=== PATIENT | male | born 1945 | race Hispanic/Latino ===

== ENCOUNTER 2020-07-12 06:58 | Inpatient (IN) | payer OTHER ==
--- OUTSIDE RECORDS SUMMARY | 2020-07-12 07:00 | XMS REPORT | Continuity of Care Document ---
:1945 Author Organization [facility] t Address 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 Intermitte Problem Active 2017-10 [facility] nt nt 0-30 da claudicati Claudicati 00:00: Me dical on on 00 Group Type 2 Type 2 Problem Active [place] diabetes Diabetes 821 da mellitus Mellitus 00:00: Medica l without without 00 Group complicati Complicati on on 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 Hyperlipid 8- da emia emia 00:00: Medical 00 Group Generalize Generalize Problem Active [facility] d anxiety d Anxiety 8-21 da disorder Disorder 00:00: Medica l 00 Group Benign Benign Problem Active [place]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 Social History Smoking Status Start Date Stop Date Source Former Smoker [facility] Medications Ordered Filled Start Stop Current Ordering Indication Dosage Frequency Signature Comments Components Source Medication Medication Date Date Medication? Clinician (SIG) Name Name amoxicillin amoxicillin No 1 Q12H amoxicilli [place] 875 mg 875 mg n 875 mg da tablet Take tablet Take tablet Medical 1 tablet 1 tablet Take 1 Group every 12 every 12 tablet hours by hours by every 12 oral route. oral route. hours by take for take for oral infection infection route. take for infection carvedilol carvedilol No carvedilol [place] 6.25 mg 6.25 mg 6.25 mg da tablet Take tablet Take tablet Medical 1 tablet 1 tablet Take 1 Group every day every day tablet by oral by oral every day route. route. by oral route. citalopram citalopram No citalopram [place] 10 mg 10 mg 10 mg da tablet take tablet take tablet Medical once a day once a day take once Group in the am in the am a day in the am clopidogrel clopidogrel No clopidogre [place] 75 mg 75 mg l 75 mg da tablet Take tablet Take tablet Medical 1 tablet 1 tablet Take 1 Group every day every day tablet by oral by oral every day route. route. by oral route. clotrimazol clotrimazol No clotrimazo [place] e-betametha e-betametha le-betamet da sone 1 sone 1 hasone 1 Medical %-0.05 % %-0.05 % %-0.05 % Megan up topical topical topical cream Apply cream Apply cream 1 1 Apply 1 application application applicatio twice a day twice a day n twice a by topical by topical day by route. route. topical route. enalapril enalapril No enalapril [place] maleate 20 maleate 20 maleate 20 da mg tablet mg tablet mg tablet Medical Take 1 Take 1 Take 1 Group tablet tablet tablet every day every day every day by oral by oral by oral route. route. route. Expectorant Expectorant No 10mL Q4H Expectoran [place] DM 10 DM 10 t DM 10 da mg-100 mg/5 mg-100 mg/5 mg-100 Medical mL oral mL oral mg/5 mL Group syrup Take syrup Take oral syrup 10 mL every 10 mL every Take 10 mL 4 hours by 4 hours by every 4 oral route. oral route. hours by use as use as oral needed for needed for route. use congestion congestion as needed and cough and cough for congestion and cough FreeStyle FreeStyle No FreeStyle [place] Jose Martin 14 Jose Martin 14 Jos Emartin 14 da Day [place] Day [facility] FreeStyle FreeStyle No FreeStyle [place] Jose Martin 14 Jose Martin 14 Jose Martin 14 da Day Sensor Day Sensor Day Sensor Medical kit kit kit Group gabapentin gabapentin No gabapentin [place] 300 mg 300 mg 300 mg da capsule capsule capsule Medica l TAKE 1 TAKE 1 TAKE 1 Group CAPSULE BY CAPSULE BY CAPSULE BY MOUTH TWICE MOUTH TWICE MOUTH DAILY DAILY TWICE DAILY lorazepam lorazepam No .5 Q1D lorazepam [facility] 0.5 mg 0.5 mg 0.5 mg da tablet Take tablet Take tablet Medical 0.5 tablets 0.5 tablets Take 0.5 Group every day every day tablets by oral by oral every day route. take route. take by oral daily for daily for route. anxiety anxiety take daily for anxiety metformin metformin No metformin [place] 850 mg 850 mg 850 mg da tablet Take tablet Take tablet Medical 1 tablet 1 tablet Take 1 Group twice a day twice a day tablet by oral by oral twice a route. route. day by oral route. pioglitazon pioglitazon No pioglitazo [place] e 15 mg e 15 mg ne 15 mg da tablet TAKE tablet TAKE tablet Medical ONE TABLET ONE TABLET TAKE ONE Group BY MOUTH BY MOUTH TABLET BY EVERY DAY EVERY DAY MOUTH EVERY DAY simvastatin simvastatin No simvastati [place] 40 mg 40 mg n 40 mg da tablet Take tablet Take tablet Medical 1 tablet 1 tablet Take 1 Group every day every day tablet by oral by oral every day route. route. by oral route. True Metrix True Metrix No True [facility] Glucose Glucose Metrix da Meter Meter Glucose Medical Meter Group True Metrix True Metrix No True M [facility] Glucose Glucose Metrix da Test Strip Test Strip Glucose Medical Test Strip Group TRUEplus TRUEplus No TRUEplus [facility] Lancets 33 Lancets 33 Lancets 33 da gauge gauge gauge Medical Group Vital Signs Vital Name Observation Time Observation Value Comments Source BP Diastolic 2019-02-17 00:00:00 85 mm[Hg] [facility] Height 2019-02-17 00:00:00 65 [in_i] [facility] BMI (Body Mass 2019-02-17 00:00:00 33.3 kg/m2 [facility] Medical Index) Group BP Systolic 2019-02-17 00:00:00 155 mm[Hg] [facility] Body Weight 2019-02-17 00:00:00 3200 [oz_av] [facility] BP Diastolic 2019-01-31 00:00:00 78 mm[Hg] [facility] Height 2019-01-31 00:00:00 65 [in_i] [facility] BMI (Body Mass 2019-01-31 00:00:00 34.1 kg/m2 [facility] Medical Index) Group BP Systolic 2019-01-31 00:00:00 166 mm[Hg] [facility] Body Weight 2019-01-31 00:00:00 3280 [oz_av] [facility] BP Diastolic 2018-09-30 00:00:00 74 mm[Hg] [facility] Height 2018-09-30 00:00:00 65 [in_i] [facility] BMI (Body Mass 2018-09-30 00:00:00 33.3 kg/m2 [facility] Medical Index) Group BP Systolic 2018-09-30 00:00:00 170 mm[Hg] [facility] Body Weight 2018-09-30 00:00:00 3200 [oz_av] [facility] Procedures This patient has no known procedures. Encounters Start End Encounter Admission Attending Care Care Encounter Source Date/Time Date/Time Type Type Clinicians Facility Department ID 2020-04-09 2020-04-09 Laboratory Lab, Adc [facility] [id number] 07:17:37 07:37:37 Only Fam [facility] I [facility] [id number] [place] [id number] Professio [id number] nal [address] 2019-07-10 2019-07-10 Outpatient [id number] 05:28:00 05:28:00 [facility] kelly [facility] 2019-02-17 2019-02-17 [place] - [id number] [facility] 00:00:00 00:00:00 MD William: [address], [place] - [address], [facility], [place] [address] , Ph. 2019-01-31 2019-01-31 [place] - [id number] [facility] 00:00:00 00:00:00 MD William: My Visual Brief [address], [place] - [address], [facility], [place] [address] , Ph. 2018-09-30 2018-09-30 [place] - [id number] [facility] 00:00:00 00:00:00 MD William: My Visual Brief [address], [facility] [address], [facility] [address] , Ph. 2018-09-13 2018-09-13 [place] - [id number] [facility] 00:00:00 00:00:00 MD William: My Visual Brief [address], [facility] [address], [facility] [address] , Ph. Results Test Description Test Time Test Comments Results Result Comments Source Potassium Level 2019-06-20 09:32:58 Test Item Value Reference Range Interpretation Comme nts Potassium Level (test code = Potassium Level) 4.9 mmol/L 3.5-5.1 Prothrombin Time and [id number] 08:34:13 Test Item Value Reference Range Interpretation Comments Prothrombin Time (test code = 14.8 seconds 9.8-13.4 H Prothrombin Time) INR (test code = INR) 1.3 ratio 0.6-1.2 H Partial Thromboplastin [id number] 08:34:13 Test Item Value Reference Range Interpretation Comments Partial Thromboplastin Time 34.10 seconds 24.39-37.25 (test code = Partial Thromboplastin Time) Comprehensive Metabolic [id number] 21:57:38 Test Item Value Reference Range Interpretation Comments Sodium Level (test code = Sodium 142.0 mmol/L 135.0-145.0 Level) Potassium Level (test code = 5.3 mmol/L 3.5-5.1 H Potassium Level) Chloride Level (test code = 103 mmol/L 98-105 Chloride Level) CO2 (test code = CO2) 29 mmol/L 22-29 Anion Gap (test code = Anion 10 mmol/L 7-16 Gap) BUN (test code = BUN) 27.80 mg/dL 8.00-23.00 H Creatinine Level (test code = 1.10 mg/dL 0.70-1.20 Creatinine Level) BUN/Creat Ratio (test code = 25 N BUN/Creat Ratio) Glucose Level (test code = 112 mg/dL 70-115 Glucose Level) Calcium Level (test code = 9.2 mg/dL 8.3-10.5 Calcium Level) Alk Phos (test code = Alk Phos) 56 U/L 40-129 Bilirubin Total (test code = 1.1 mg/dL 0.1-0.9 H Bilirubin Total) Albumin Level (test code = 4.0 g/dL 3.5-5.2 Albumin Level) Protein Total (test code = 6.9 g/dL 6.4-8.3 Protein Total) ALT (test code = ALT) 10 U/L 1-41 AST (test code = AST) 14 U/L 1-40 Globulin (test code = Globulin) 2.9 g/dL 2.9-3.1 A/G Ratio (test code = A/G 1.4 ratio N Ratio) Comprehensive Metabolic [id number] 21:57:38 Test Item Value Reference Range Interpretation Comments Sodium Level (test 142.0 mmol/L 135.0-145.0 code = Sodium Level) Potassium Level 5.3 mmol/L 3.5-5.1 H (test code = Potassium Level) Chloride Level (test 103 mmol/L 98-105 code = Chloride Level) CO2 (test code = 29 mmol/L 22-29 CO2) Anion Gap (test code 10 mmol/L 7-16 = Anion Gap) BUN (test code = 27.80 mg/dL 8.00-23.00 H BUN) Creatinine Level 1.10 mg/dL 0.70-1.20 (test code = Creatinine Level) BUN/Creat Ratio 25 N (test code = BUN/Creat Ratio) Glucose Level (test 112 mg/dL 70-115 code = Glucose Level) Calcium Level (test 9.2 mg/dL 8.3-10.5 code = Calcium Level) Alk Phos (test code 56 U/L 40-129 = Alk Phos) Bilirubin Total 1.1 mg/dL 0.1-0.9 H (test code = Bilirubin Total) Albumin Level (test 4.0 g/dL 3.5-5.2 code = Albumin Level) Protein Total (test 6.9 g/dL 6.4-8.3 code = Protein Total) ALT (test code = 10 U/L 1-41 ALT) AST (test code = 14 U/L 1-40 AST) Globulin (test code 2.9 g/dL 2.9-3.1 = Globulin) A/G Ratio (test code 1.4 ratio N = A/G Ratio) eGFR AA (test code = >60 N eGFR (e stimated eGFR AA) mL/min/1.73 m2 Glomerular Filtration Rate ) is an estimated va lue, calculated from the patient's serum creatinine usin g the MDRD equation. It is NOT the patient 's actual GFR. The eGFR provides a more clinically usef ul measure of kidn ey disease than se rum creatinine alone.This calculation [place] es sex and race in to account, if the information is provided. If th e race is not provided, and t he patient is -Yue n, multiply by 1.2 12. If sex is not provided, and t he patient is fema le, multiply by 0.7 42. Results for pat ients <18 years of ag e have not been validated by th e MDRD study and should be interpreted wit h caution. eGFR R esult Interpretation: eGFR > or = 60 is in the Normal RangeeGF R < 60 may mean kid shaina diseaseeGFR < 1 5 may mean kidney failure Rang es recommended by the National Kidney Foundation, http://nkdep.ni h.gov Lipid [id number] 21:57:38 Test Item Value Reference Range Interpretation Comments Cholesterol Total 166 mg/dL 0-200 RISK OF HE ART (test code = DISEASEPublishe d by Cholesterol Total) [place] [employer] Caprice lyte Optimal Borderl ine Increased RiskC HOL <200 200-239 >2 40TRIG <150 150-199 >2 00HDL Male >60 <40H DL Female >60 <5 0LDL <100 130-159 >1 60LDL Near optimal is 100-129 Triglycerides (test 118 mg/dL 9-200 code = Triglycerides) HDL (test code = HDL) 37 mg/dL 40-60 L LDL (test code = LDL) 105 mg/dL 0-130 The eq uation being used in this calcula tion is LDL = (Chol - H DL) - (Trig / 5) VLDL (test code = 24 mg/dL 5-40 The equati on being used VLDL) in this calcula tion is VLDL = Trig / 5 Chol/HDL (test code = 4.5 ratio 0.0-5.0 Chol/HDL) LDL/HDL Ratio (test 3 N The equa tion being used code = LDL/HDL Ratio) in thi s calculation is LDL/HDL Ratio=L DL Calc/HDL Chol Comprehensive Metabolic [id number] 21:57:38 Test Item Value Reference Range Interpretation Comments Sodium Level (test 142.0 mmol/L 135.0-145.0 code = Sodium Level) Potassium Level 5.3 mmol/L 3.5-5.1 H (test code = Potassium Level) Chloride Level (test 103 mmol/L 98-105 code = Chloride Level) CO2 (test code = 29 mmol/L 22-29 CO2) Anion Gap (test code 10 mmol/L 7-16 = Anion Gap) BUN (test code = 27.80 mg/dL 8.00-23.00 H BUN) Creatinine Level 1.10 mg/dL 0.70-1.20 (test code = Creatinine Level) BUN/Creat Ratio 25 N (test code = BUN/Creat Ratio) Glucose Level (test 112 mg/dL 70-115 code = Glucose Level) Calcium Level (test 9.2 mg/dL 8.3-10.5 code = Calcium Level) Alk Phos (test code 56 U/L 40-129 = Alk Phos) Bilirubin Total 1.1 mg/dL 0.1-0.9 H (test code = Bilirubin Total) Albumin Level (test 4.0 g/dL 3.5-5.2 code = Albumin Level) Protein Total (test 6.9 g/dL 6.4-8.3 code = Protein Total) ALT (test code = 10 U/L 1-41 ALT) AST (test code = 14 U/L 1-40 AST) Globulin (test code 2.9 g/dL 2.9-3.1 = Globulin) A/G Ratio (test code 1.4 ratio N = A/G Ratio) eGFR AA (test code = >60 N eGFR (e stimated eGFR AA) mL/min/1.73 m2 Glomerular Filtration Rate ) is an estimated va lue, calculated from the patient's serum creatinine usin g the MDRD equation. It is NOT the patient 's actual GFR. The eGFR provides a more clinically usef ul measure of kidn ey disease than se rum creatinine alone.This calculation [place] es sex and race in to account, if the information is provided. If th e race is not provided, and t he patient is -Yue n, multiply by 1.2 12. If sex is not provided, and t he patient is fema le, multiply by 0.7 42. Results for pat ients <18 years of ag e have not been validated by [facility] MDRD study and should be interpreted wit h caution. eGFR R esult Interpretation: eGFR > or = 60 is in the Normal RangeeGF R < 60 may mean kid shaina diseaseeGFR < 1 5 may mean kidney failure Rang es recommended by the National Kidney Foundation, http://nkdep.ni h.gov eGFR Non-AA (test >60.00 N eGFR (franklyn mated code = eGFR Non-AA) mL/min/1.73 m2 Glomer ular Filtration Rate ) is an estimated va lue, calculated from the patient's serum creatinine usin g the MDRD equation. It is NOT the patient 's actual GFR. The eGFR provides a more clinically usef ul measure of kidn ey disease than se rum creatinine alone.This calculation [place] es sex and race in to account, if the information is provided. If th e race is not provided, and t he patient is -Yue n, multiply by 1.2 12. If sex is not provided, and t he patient is fema le, multiply by 0.7 42. Results for pat ients <18 years of ag e have not been validated by th e MDRD study and should be interpreted wit h caution. eGFR R esult Interpretation: eGFR > or = 60 is in the Normal RangeeGF R < 60 may mean kid shaina diseaseeGFR < 1 5 may mean kidney failure Rang es recommended by the National Kidney Foundation, http://nkdep.ni h.gov Complete Blood Count with [id number] 21:46:56 Test Item Value Reference Range Interpretation Comments WBC (test code = WBC) 8.4 x10 4.4-10.5 RBC (test code = RBC) 4.09 x10 4.10-5.70 L Hgb (test code = Hgb) 13.0 g/dL 13.4-17.4 L Hct (test code = Hct) 40.5 % 38.7-52.0 MCV (test code = MCV) 99.00 fL 80.00-100.00 MCHC (test code = 32.10 g/dL 32.00-37.50 MCHC) RDW CV (test code = 14.1 % 11.5-14.5 RDW CV) MCH (test code = MCH) 31.8 pg 27.0-32.5 Platelets (test code = 300.0 x10 140.0-440.0 Platelets) MPV (test code = MPV) 11.0 fL N Slide Review (test Auto Auto Result cr eated by code = Slide Review) GL_SJM_ SLIDE_REV_AUTO nRBC (test code = 0 N nRBC) NRBC Abs (test code = 0.00 x10 N NRBC Abs) IPF (test code = IPF) 0 % N Automated [id number] 21:46:56 Test Item Value Reference Range Interpretation Comments Neutro Auto (test code = Neutro 64.2 % 36.0-70.0 Auto) Lymph Auto (test code = Lymph Auto) 22.7 % 12.0-44.0 [place] Auto (test code = [place] Auto) 8.4 % 0.0-11.0 Eos, Auto (test code = Eos, Auto) 3.7 % 0.0-7.0 Basophil Auto (test code = Basophil 0.5 % 0.0-2.0 Auto) Neutro Absolute (test code = Neutro 5.4 x10 1.6-7.4 Absolute) Lymph Absolute (test code = Lymph 1.92 x10 .50-4.60 Absolute) [place] Absolute (test code = [place] .71 x10 .00-1.20 Absolute) Eos Absolute (test code = Eos 0.31 x10 0.00-0.74 Absolute) Baso Absolute (test code = Baso 0.04 x10 0.00-0.21 Absolute) IG [id number] 21:46:56 Test Item Value Reference Range Interpretation Comments IG (test code = IG) 0.5 % 0.0-5.0 IG Abs (test code = IG Abs) 0 x10 N Hemoglobin A1c [Mass/volume] in [id number] 08:37:00 Test Item Value Reference Range Interpretation Comments Hemoglobin A1c in Blood (test code = 6.3 % 4.0-6.0 H 09818-6) [facility] or [id number] 08:37:00 Test Item Value Reference Range Interpretation Comments cholesterol level (test code = 178 mg/dL 150-200 cholesterol level) triglycerides level (test code = 93 mg/dL <150 triglycerides level) HDL cholesterol (test code = HDL 43 mg/dL >55 L cholesterol) LDL cholesterol direct (test code = 135 mg/dL <100 H LDL cholesterol direct) cholesterol risk ratio (test code = 4.139 cholesterol risk ratio) [facility]] in [id number] 08:37:00 Test Item Value Reference Range Interpretation Comments microalbumin random (test code = 69.3 mg/L 0-20 H microalbumin random) [facility] - Serum or Plasma 2018-09-09 01:09:00 Test Item Value Reference Range Interpretation Comments glucose (test code = glucose) 204 mg/dL 82-115 H Urea nitrogen [Mass/volume] in 22 mg/dL 8-23 Serum or Plasma (test code = 3094-0) Osmolality of Serum or Plasma 291 280-300 (test code = 2692-2) creatinine (test code = 1.0 mg/dL 0.70-1.20 creatinine) glomerular filtration rate (test >60.00 code = glomerular filtration rate) Urea nitrogen/Creatinine [Mass 22.0 12-20 H Ratio] in Serum or Plasma (test code = 3097-3) sodium level (test code = sodium 141 mmol/L 135-145 level) Potassium [Moles/volume] in Body 5.0 mmol/L 3.5-5.2 fluid (test code = 2821-7) chloride level (test code = 102 mmol/L 98-108 chloride level) CO2 (test code = CO2) 30 mmol/L 21-32 anion gap (test code = anion gap) 14.0 mEq/L 12-20 calcium level (test code = calcium 9.5 mg/dL 8.8-10.2 level) total protein (test code = total 7.0 g/dL 6.6-8.7 protein) albumin (test code = albumin) 4.1 g/dL 3.5-5.2 globulin (test code = globulin) 2.9 gm/dL A/G ratio (test code = A/G ratio) 1.4 >1.0 bilirubin,total (test code = 1.1 mg/dL 0.0-1.2 bilirubin,total) AST/SGOT (test code = AST/SGOT) 17 U/L 15-40 Alanine aminotransferase 13 U/L 0-41 [Enzymatic activity/volume] in Serum or Plasma (test code = 1742-6) Alkaline phosphatase [Enzymatic 66 U/L 40-130 activity/volume] in Serum or Plasma (test code = 6768-6) [facility] W Auto Differential panel - [id number] 01:09:00 Test Item Value Reference Range Interpretation Comments white blood count (test code = 11.1 K/uL 4.0-12.3 white blood count) red blood count (test code = red 4.38 M/uL 3.80-5.80 blood count) Hemoglobin [Mass/volume] in Blood 13.7 g/dL 11.67-17.22 (test code = 718-7) hematocrit (test code = hematocrit) 41.9 % 35.0-51.0 Erythrocyte mean corpuscular volume 95.5 fL 78-96 [Entitic volume] (test code = 35981-6) Erythrocyte mean corpuscular 31.3 pg 26.8-33.4 hemoglobin [Entitic mass] (test code = 64103-9) mean corpuscular HGB conc (test 32.8 g/dL 32.3-36.7 code = mean corpuscular HGB conc) red cell distribution width (test 12.7 % 11.6-15.4 code = red cell distribution width) Platelets [#/volume] in Blood (test 330 K/uL 115-328 H code = 44020-3) Platelet mean volume [Entitic 8.5 fL 8.4-11.8 volume] in Blood (test code = 06814-9) Neutrophils.band form/100 61.3 % 44.7-82.4 leukocytes in Blood (test code = 98042-3) Lymphocytes/100 leukocytes in Body 25.7 % 10.0-50.0 fluid (test code = 37145-8) Monocytes/100 leukocytes in Blood 8.3 % 3.9-13.4 by Automated count (test code = 5905-5) Eosinophils/100 leukocytes in Blood 3.5 % 0.0-6.43 by Automated count (test code = 713-8) Basophils/100 leukocytes in Blood 1.1 % 0.0-0.72 H by Automated count (test code = 706-2) [facility], [id number] 01:09:00 NeutrophilsBandLymphocyteAtypical LymphMonocytePlatelet EstimateDohle BodiesToxic VacuolationMaSt. Dominic HospitalPT/[id number] 01:09:00 Test Item Value Reference Range Interpretation Comments prothrombin time (test code = 11.6 seconds 10.3-12.3 prothrombin time) INR in Blood by Coagulation 1.10 assay (test code = 81503-4) [facility] [id number] 01:09:00 Test Item Value Reference Range Interpretation Comments INR in Blood by Coagulation 25.4 seconds 22.5-37.0 assay (test code = 69882-0) [facility]
[2020-07-12 07:38] LABS: Absolute Lymphocytes (CBC) 1.3 K/uL (0.7-4.9); Basophils % 0.8 % (0-1.3); Lymphocytes % 14.1 % (15.3-44.8); MPV 9.3 fL (7.6-11.3); RBC Red Blood Cell Count 4.07 M/uL (4.33-5.43)
[2020-07-12 07:42] LABS: Protime INR 1.23
[2020-07-12] MEDS ORDERED: NA CHLORIDE 0.9% 1,000 ML ONE (07:54)
[2020-07-12 08:00] LABS: Albumin 3.2 g/dL (3.4-5.0); Bilirubin Direct 0.3 mg/dL (0-0.2); Bilirubin Total 1.8 mg/dL (0.2-1.0); Potassium 4.5 mmol/L (3.5-5.1); Protein, Total 7.1 g/dL (6.4-8.2); Troponin (Emerg Dept Use Only) 0.03 ng/mL (0.0-0.045)
--- NOTE | 2020-07-12 08:35 | RAD REPORT ---
EXAM DESCRIPTION: RAD - Chest Single View - 07/12/2020 8:17 am CLINICAL HISTORY: Cough;Dyspnea COMPARISON: None TECHNIQUE: AP portable chest image was obtained 07/12/2020 8:17 am . FINDINGS: Motion degraded study shows low lung volumes. Patchy opacification at each base probably a telectasis. Central vasculature and lung markings are mildly prominent. Right heart border is partial ly obscured. Sternotomy wires are in place. Heart size is upper normal. Trachea is midline. No measur able pleural effusion and no pneumothorax. No acute bony abnormality seen. No acute aortic findings s uspected. IMPRESSION: Baseline study showing patchy lung parenchymal opacification accentuated by respiratory motion. No focal consolidation confirmed. Mild bilateral infiltrates cannot be excluded.
[2020-07-12] MEDS ORDERED: FUROSEMIDE 20 MG/ 2ML VIAL ONE (08:39)
[2020-07-12] MEDS ORDERED: dexAMETHasone 4 MG/ML VIAL ONE (08:39)
[2020-07-12] MEDS ORDERED: CEFTRIAXONE/SWI 1gm 1 GM/10 ML SYR ONE (08:39)
--- NOTE | 2020-07-12 09:04 | RAD REPORT ---
EXAM DESCRIPTION: CT - Chest For Pe Angio - 07/12/2020 8:39 am CLINICAL HISTORY: Dyspnea;Cough COMPARISON: Chest Single View dated 07/12/2020 TECHNIQUE: Dynamically enhanced 3 mm thick images of the chest were obtained during administration o f approximately 150mL Isovue 370 IV contrast. Coronal and oblique MIP reconstruction images were gene rated and reviewed. Exam utilizes a protocol to evaluate the pulmonary arterial tree. All CT scans are performed using dose optimization technique as appropriate and may include automated exposure control or mA/KV adjustment according to patient size. FINDINGS: No pulmonary emboli are identified. The aorta as imaged shows no acute or suspicious finding. No pericardial thickening or effusion. Aort ic calcifications and dense coronary artery calcifications are present. Interstitial thickening is present. Bilateral small pleural effusions are present right greater than left. Partial atelectasis of each lower lobe present also more prominent on the right. No endobronchi al lesion. No suspicious mass of the parenchyma. No pneumothorax. No pleural based mass. Right hemidi aphragm elevation is present. No mediastinal or hilar suspicious masses. No chest wall masses or abnormal axillary lymphadenopathy. IMPRESSION: No pulmonary emboli identified. Small bilateral pleural effusions right greater than left with partial atelectasis. Overall increased interstitial opacification that could be edema or possibly viral infiltrate. Heart size is upper normal. No pericardial effusion.
--- NOTE | 2020-07-12 09:18 | EDPHYS ---
Physician Documentation [facility] Name: Mulugeta Hart Age: 75 yrs Sex: Male : 1945 Arrival Date: 07/12/2020 Time: 06:59 Bed 4 Private MD: ED Physician Yousuf Matthew HPI: 07/12 09:09 This 75 yrs old Male presents to ER via Wheelchair with complaints of long Shortness Of Breath. 09:09 The patient has shortness of breath at rest, with light activity. Duration: The long symptoms are continuous, and are steadily getting worse. The patient's shortness of breath has no apparent modifying factors, is aggravated by nothing, is alleviated by nothing. Associated signs and symptoms: The patient has no apparent associated signs or symptoms. Severity of symptoms: At their worst the symptoms were moderate in the emergency department the symptoms are unchanged. The patient has not experienced similar symptoms in the past. Historical: - Allergies: 07:15 No Known Allergies; ss - PMHx: 07:15 Diabetes - NIDDM; Hypertension; ss - PSHx: 07:15 CABG; ss - Immunization history:: Adult Immunizations up to date. - Social history:: Smoking status: Patient denies any tobacco usage or history of. ROS: 09:10 Constitutional: Negative for fever, chills, and weight loss, Eyes: Negative for injury, long pain, redness, and discharge, ENT: Negative for injury, pain, and discharge, Neck: Negative for injury, pain, and swelling, Cardiovascular: Negative for chest pain, palpitations, and edema, Abdomen/GI: Negative for abdominal pain, nausea, vomiting, diarrhea, and constipation, Back: Negative for injury and pain, : Negative for injury, bleeding, discharge, and swelling, MS/Extremity: Negative for injury and deformity, Skin: Negative for injury, rash, and discoloration, Neuro: Negative for headache, weakness, numbness, tingling, and seizure, Psych: Negative for depression, anxiety, suicide ideation, homicidal ideation, and hallucinations, Allergy/Immunology: Negative for hives, rash, and allergies, Endocrine: Negative for neck swelling, polydipsia, polyuria, polyphagia, and marked weight changes, Hematologic/Lymphatic: Negative for swollen nodes, abnormal bleeding, and unusual bruising. 09:10 Respiratory: Positive for cough, shortness of breath, at rest. Exam: 09:10 Constitutional: This is a well developed, well nourished patient who is awake, alert, long and in no acute distress. Head/Face: Normocephalic, atraumatic. Eyes: Pupils equal round and reactive to light, extra-ocular motions intact. Lids and lashes normal. Conjunctiva and sclera are non-icteric and not injected. Cornea within normal limits. Periorbital areas with no swelling, redness, or edema. ENT: Nares patent. No nasal discharge, no septal abnormalities noted. Tympanic membranes are normal and external auditory canals are clear. Oropharynx with no redness, swelling, or masses, exudates, or evidence of obstruction, uvula midline. Mucous membranes moist. Neck: Trachea midline, no thyromegaly or masses palpated, and no cervical lymphadenopathy. Supple, full range of motion without nuchal rigidity, or vertebral point tenderness. No Meningismus. Chest/axilla: Normal chest wall appearance and motion. Nontender with no deformity. No lesions are appreciated. Cardiovascular: Regular rate and rhythm with a normal S1 and S2. No gallops, murmurs, or rubs. Normal PMI, no JVD. No pulse deficits. Abdomen/GI: Soft, non-tender, with normal bowel sounds. No distension or tympany. No guarding or rebound. No evidence of tenderness throughout. Back: No spinal tenderness. No costovertebral tenderness. Full range of motion. Male : Normal genitalia with no discharge or lesions. Skin: Warm, dry with normal turgor. Normal color with no rashes, no lesions, and no evidence of cellulitis. MS/ Extremity: Pulses equal, no cyanosis. Neurovascular intact. Full, normal range of motion. Neuro: Awake and alert, GCS 15, oriented to person, place, time, and situation. Cranial nerves II-XII grossly intact. Motor strength 5/5 in all extremities. Sensory grossly intact. Cerebellar exam normal. Normal gait. Psych: Awake, alert, with orientation to person, place and time. Behavior, mood, and affect are within normal limits. 09:10 Respiratory: the patient does not display signs of respiratory distress, Respirations: normal, Breath sounds: rales, that are mild, are located in both bases, decreased breath sounds, that are mild, are scattered. 09:19 ECG was reviewed by the Attending Physician. [facility] Vital Signs: 07:12 BP 166 / 83; Pulse 68; Resp 22; Temp 97.5(TE); Pulse Ox 91% on 2 lpm NC; Height 5 ft. 6 ss in. (167.64 cm); Pain 0/10; 07:51 BP 166 / 78; Pulse 67; Resp 22; Pulse Ox 98% on 2 lpm NC; sv 08:00 BP 169 / 71; Pulse 70; Resp 22; Pulse Ox 97% ; sv 10:00 BP 152 / 73; Pulse 71; Resp 16; Pulse Ox 94% ; sv 11:17 BP 115 / 66; Pulse 71; Resp 17 S; Pulse Ox 95% on R/A; Pain 0/10; iw 12:00 BP 136 / 69; Pulse 69; Resp 14; Pulse Ox 96% ; sv 12:30 BP 159 / 79; Pulse 79; Resp 16; Pulse Ox 95% ; sv 13:29 BP 135 / 75; Pulse 71; Pulse Ox 95% ; ss MDM: 07:08 Patient medically screened. long 09:10 Differential diagnosis: Anemia Bronchitis CHF exacerbation, Chronic Obstructive long Pulmonary Disease pneumonia, Pneumothorax pulmonary edema, Pulmonary Embolism reactive airway disease, Sepsis. Antibiotic administration: Rocephin and Zithromax given. Differential Diagnosis sepsis. The patient's Wells Deep Vein Thrombosis Score was calculated as follows: Total Score: 0-2 Pts- Low Risk. The patient's pulmonary embolism risk score was calculated as follows: Total Score: 0-2 points. This patient was found to be at low risk for a pulmonary embolism by using the Well's assessment criteria. Immunization status: Pneumococcal vaccine: Influenza vaccine: Data reviewed: vital signs, nurses notes, lab test result(s), EKG, radiologic studies, plain films. Data interpreted: academic support coordinator: not applicable for this patient encounter. Test interpretation: by ED physician or midlevel provider: ECG, plain radiologic studies. 07/12 07:15 Order name: Basic Metabolic Panel 07/12 07:15 Order name: CBC with Diff 07/12 07:15 Order name: LFT's sv 07/12 07:15 Order name: Magnesium sv 07/12 07:15 Order name: NT PRO-BNP sv 07/12 07:15 Order name: PT-INR sv 07/12 07:15 Order name: Troponin (emerg Dept Use Only) 07/12 07:17 Order name: Basic Metabolic Panel [facility] 07/12 07:17 Order name: CBC with Diff [facility] 07/12 07:17 Order name: LFT's [facility] 07/12 07:17 Order name: Magnesium [facility] 07/12 07:17 Order name: NT PRO-BNP [facility] 07/12 07:17 Order name: PT-INR [facility] 07/12 07:17 Order name: Troponin (emerg Dept Use Only) [facility] 07/12 07:17 Order name: Blood Culture Adult (2) [facility] 07/12 07:17 Order name: COVID-19 [facility] 07/12 07:17 Order name: D-Dimer [facility] 07/12 07:17 Order name: Influenza Screen (a \T\ B) [facility] 07/12 07:45 Order name: CBC with Automated Diff; Complete Time: 07:55 EDMS 07/12 07:47 Order name: Protime (+INR); Complete Time: 07:55 EDMS 07/12 07:47 Order name: D-Dimer; Complete Time: 07:55 EDMS 07/12 07:59 Order name: Influenza Screen (A ; Complete Time: 08:05 EDMS 07/12 08:00 Order name: Basic Metabolic Panel; Complete Time: 08:05 EDMS 07/12 08:00 Order name: Liver (Hepatic) Function; Complete Time: 08:05 EDMS 07/12 08:00 Order name: Troponin (Emerg Dept Use Only); Complete Time: 08:05 EDMS 07/12 08:00 Order name: NT PRO-BNP; Complete Time: 08:05 EDMS 07/12 08:00 Order name: Magnesium; Complete Time: 08:05 EDMS 07/12 09:51 Order name: CORONAVIRUS EDME 07/12 10:59 Order name: SARS-COV-2 RT PCR EDME 07/12 12:57 Order name: Urine Dipstick--Ancillary (enter results) 07/12 07:15 Order name: EKG; Complete Time: 07:16 sv 07/12 07:15 Order name: Cardiac monitoring; Complete Time: 07:37 sv 07/12 07:15 Order name: EKG - Nurse/Tech; Complete Time: 07:37 sv 07/12 07:15 Order name: IV Saline Lock; Complete Time: 07:37 sv 07/12 07:15 Order name: Labs collected and sent; Complete Time: 07:37 sv 07/12 07:15 Order name: O2 Per Protocol; Complete Time: 07:36 sv 07/12 07:15 Order name: O2 Sat Monitoring; Complete Time: 07:36 sv 07/12 07:17 Order name: XRAY Chest (1 view) [facility] 07/12 07:17 Order name: EKG; Complete Time: 07:18 long 07/12 07:17 Order name: Cardiac monitoring; Complete Time: 07:36 long 07/12 07:17 Order name: EKG - Nurse/Tech; Complete Time: 07:36 long 07/12 07:17 Order name: IV Saline Lock; Complete Time: 07:36 [facility] 07/12 07:17 Order name: Labs collected and sent; Complete Time: 07:36 long 07/12 07:17 Order name: O2 Per Protocol; Complete Time: 07:36 [facility] 07/12 07:17 Order name: O2 Sat Monitoring; Complete Time: 07:36 [facility] 07/12 07:17 Order name: Urine Dipstick-Ancillary (obtain specimen); Complete Time: 12:53 [facility] 07/12 08:07 Order name: CT Chest For PE Angio [facility] 07/12 08:35 Order name: RAD; Complete Time: 09:12 EDMS 07/12 09:05 Order name: CT; Complete Time: 09:12 EDMS 07/12 12:02 Order name: Diet Heart Healthy; Complete Time: 12:03 07/12 13:26 Order name: Urine Dipstick-Ancillary EDMS EC:19 Rate is 72 beats/min. Rhythm is regular. QRS [place] is Normal. DE interval is normal. QRS long interval is normal. QT interval is normal. No Q waves. T waves are Inverted in leads I, aVL. No ST changes noted. Clinical impression: NSR w/ Non-specific ST/T Changes, LVH, and No evidence of ischemia. Interpreted by me. Reviewed by me. Administered Medications: Discontinued: NS 0.9% 1000 ml IV at 75 ml/hr continuous 07:42 Drug: NS 0.9% 1000 ml Route: IV; Rate: 75 ml/hr; Site: left antecubital; iw 10:00 Follow up: IV Status: Order to discontinue infusion iw 08:56 Drug: Lasix 20 mg Route: IVP; Site: left antecubital; iw 11:53 Follow up: Response: No adverse reaction iw 08:56 Drug: Rocephin 1 grams Route: IV; Rate: per protocol; Site: left antecubital; iw 09:00 Follow up: IV Status: Completed infusion iw 08:57 Drug: Decadron - Dexamethasone 6 mg Route: IVP; Site: left antecubital; iw 10:00 Follow up: Response: No adverse reaction; Marked relief of symptoms iw 09:52 Drug: Lovenox 40 mg Route: Sub-Q; Site: left lower abdomen; iw 11:52 Follow up: Response: No adverse reaction iw 09:53 Not Given (Patient Refused): Aspirin 162 mg PO once iw 09:53 Drug: Pepcid 20 mg Route: IVP; Site: left antecubital; iw 11:52 Follow up: Response: No adverse reaction iw 10:30 Drug: Zithromax 500 mg Route: IVPB; Infused Over: 1 hrs; Site: left antecubital; iw 11:42 Follow up: IV Status: Completed infusion iw Disposition: 07/12/20 09:18 Hospitalization ordered by Darrin Hansen for Inpatient Admission. Preliminary diagnosis are Dyspnea, Pleural effusion in conditions classified elsewhere, Unspecified combined systolic (congestive) and diastolic (congestive) heart failure, Hypoxemia, Essential (primary) hypertension, Type 2 diabetes mellitus, Acute upper respiratory infection, unspecified. - Bed requested for Telemetry/MedSurg (Inpatient). - Status is Inpatient Admission. iw - Condition is Fair. - Problem is new. - Symptoms have improved. Signatures: Dispatcher [employer] Rdaha Odell RN RN sv Woody, Diana, RN RN dw Anderson, Corey, MD MD cha Williams, Irene, RN RN iw Smirch, Shelby, RN RN ss Corrections: (The following items were deleted from the chart) : 09:18 Hospitalization Ordered by Darrin Hansen for Inpatient Admission. Preliminary diagnosis is Dyspnea; Pleural effusion in conditions classified elsewhere; Unspecified combined systolic (congestive) and diastolic (congestive) heart failure; Hypoxemia; Essential (primary) hypertension; Type 2 diabetes mellitus; Acute upper respiratory infection, unspecified. Bed requested for Telemetry/MedSurg (Inpatient). Status is Inpatient Admission. Condition is Fair. Problem is new. Symptoms have improved. long Molina:[id number] 13:20 07/12/2020 09:18 Hospitalization Ordered by Darrin Hansen for Inpatient iw Admission. Preliminary diagnosis is Dyspnea; Pleural effusion in conditions classified elsewhere; Unspecified combined systolic (congestive) and diastolic (congestive) heart failure; Hypoxemia; Essential (primary) hypertension; Type 2 diabetes mellitus; Acute upper respiratory infection, unspecified. Bed requested for Telemetry/MedSurg (Inpatient). Status is Inpatient Admission. Condition is Fair. Problem is new. Symptoms have improved. dw
--- NOTE | 2020-07-12 09:18 | ER ---
Nurse's Notes [facility] Name: Mulugeta Hart Age: 75 yrs Sex: Male : 1945 Arrival Date: 07/12/2020 Time: 06:59 Bed 4 Private MD: Diagnosis: Dyspnea;Pleural effusion in conditions classified elsewhere;Unspecified combined systolic (congestive) and diastolic (congestive) heart failure;Hypoxemia;Essential (primary) hypertension;Type 2 diabetes mellitus;Acute upper respiratory infection, unspecified Presentation: 07/12 07:12 Chief complaint: Patient states: Shortness of breath that began 2 days ago, but went ss away until this morning. Also reports chills that began this morning. Denies fever, cough. Coronavirus screen: Client denies travel out of the [place] in the last 14 days. chills, shortness of breath, Client presents with at least one sign or symptom that may indicate coronavirus-19. Standard/surgical mask placed on the client. Provider contacted for isolation considerations. Ebola Screen: Patient denies exposure to infectious person. Patient denies travel to an Ebola-affected area in the 21 days before illness onset. Initial Sepsis Screen: Does the patient meet any 2 criteria? RR > 20 per min. No. Patient's initial sepsis screen is negative. Does the patient have a suspected source of infection? No. Patient's initial sepsis screen is negative. Risk Assessment: Do you want to hurt yourself or someone else? Patient reports no desire to harm self or others. Onset of symptoms was July 12, 2020. 07:12 Method Of Arrival: Wheelchair ss 07:12 Acuity: TAMMY 3 ss Triage Assessment: 13:38 General: Appears in no apparent distress. Respiratory: Reports shortness of breath on iw exertion Onset: The symptoms/episode began/occurred yesterday, the patient has mild shortness of breath. Historical: - Allergies: 07:15 No Known Allergies; ss - PMHx: 07:15 Diabetes - NIDDM; Hypertension; ss - PSHx: 07:15 CABG; ss - Immunization history:: Adult Immunizations up to date. - Social history:: Smoking status: Patient denies any tobacco usage or history of. Screenin:34 Abuse screen: Denies threats or abuse. Denies injuries from another. Nutritional sv screening: No deficits noted. Tuberculosis screening: No symptoms or risk factors identified. Fall Risk None identified. Assessment: 07:30 General: Appears in no apparent distress. Behavior is calm, cooperative. Pain: iw Complains of pain in mid-sternal area. Neuro: Level of Consciousness is awake, alert, obeys commands, Oriented to person, place, time, situation, Moves all extremities. Full function. Cardiovascular: Reports chest pain, shortness of breath, Heart tones S1 S2 present Capillary refill < 3 seconds in bilateral fingers Patient's skin is warm and dry. GI: Abdomen is non-distended. Derm: Skin is intact, is healthy with good turgor. Musculoskeletal: Range of motion: intact in all extremities. 09:19 Reassessment: Patient appears in no apparent distress at this time. Patient and/or iw family updated on plan of care and expected duration. Pain level reassessed. Patient is alert, oriented x 3, equal unlabored respirations, skin warm/dry/pink. pt assisted to standing, voiding per urinal. 11:20 Reassessment: Patient appears in no apparent distress at this time. Patient and/or iw family updated on plan of care and expected duration. Pain level reassessed. Patient is alert, oriented x 3, equal unlabored respirations, skin warm/dry/pink. urine output 300 mL Patient states feeling better. Patient states symptoms have improved. 11:39 Reassessment: Dr. Hansen at beside, pt will be admitted, awaiting floor orders and room iw assignment. Pain: Denies pain. Cardiovascular: Rhythm is regular. Respiratory: Airway is patent Respiratory effort is even, unlabored, Breath sounds are clear bilaterally. 12:30 Reassessment: Patient appears in no apparent distress at this time. pt sitting up iw eating lunch, NAD, feeling better, no SOB at this time. 13:37 Reassessment: Patient appears in no apparent distress at this time. Patient and/or iw family updated on plan of care and expected duration. Pain level reassessed. Patient is alert, oriented x 3, equal unlabored respirations, skin warm/dry/pink. report given to ALICE Fallon Patient denies pain at this time. Vital Signs: 07:12 BP 166 / 83; Pulse 68; Resp 22; Temp 97.5(TE); Pulse Ox 91% on 2 lpm NC; Height 5 ft. 6 ss in. (167.64 cm); Pain 0/10; 07:51 BP 166 / 78; Pulse 67; Resp 22; Pulse Ox 98% on 2 lpm NC; sv 08:00 BP 169 / 71; Pulse 70; Resp 22; Pulse Ox 97% ; sv 10:00 BP 152 / 73; Pulse 71; Resp 16; Pulse Ox 94% ; sv 11:17 BP 115 / 66; Pulse 71; Resp 17 S; Pulse Ox 95% on R/A; Pain 0/10; iw 12:00 BP 136 / 69; Pulse 69; Resp 14; Pulse Ox 96% ; sv 12:30 BP 159 / 79; Pulse 79; Resp 16; Pulse Ox 95% ; sv 13:29 BP 135 / 75; Pulse 71; Pulse Ox 95% ; ss ED Course: 06:59 Patient arrived in ED. cl3 07:01 Shefali Beavers, RN is Primary Nurse. iw 07:08 Yousuf Matthew MD is Attending Physician. long 07:14 Triage completed. ss 07:15 Arm band placed on right wrist. ss 07:20 Patient has correct armband on for positive identification. Placed in gown. Bed in low sv position. Call light in reach. Side rails up X2. Adult w/ patient. manager monitoring on. Pulse ox on. NIBP on. Door closed. Head of bed elevated. 07:20 First set of blood cultures drawn by me. Inserted saline lock: 20 gauge in left sv antecubital area, using aseptic technique. ,using aseptic technique. done by Shefali JENKINS Blood collected. 07:25 EKG done, by ED staff, reviewed by Yousuf Matthew MD. sv 07:37 Magnesium Sent. sv 07:37 LFT's Sent. sv 07:37 CBC with Diff Sent. sv 07:37 Basic Metabolic Panel Sent. sv 07:37 Troponin (emerg Dept Use Only) Sent. sv 07:37 PT-INR Sent. sv 07:37 NT PRO-BNP Sent. sv 07:37 Magnesium Sent. sv 07:37 LFT's Sent. sv 07:37 CBC with Diff Sent. sv 07:37 Basic Metabolic Panel Sent. sv 07:38 NT PRO-BNP Sent. sv 07:38 PT-INR Sent. sv 07:38 Troponin (emerg Dept Use Only) Sent. sv 07:38 Blood Culture Adult (2) Sent. sv 07:38 COVID-19 Sent. sv 07:38 D-Dimer Sent. sv 07:38 Influenza Screen (a \T\ B) Sent. sv 09:15 Darrin Hansen is Hospitalizing Provider. long 11:41 No provider procedures requiring assistance completed. Patient admitted, IV remains in iw place. 12:49 CORONAVIRUS Sent. sv 12:49 XRAY Chest (1 view) Sent. sv 12:54 Urine collected: clean catch specimen, clear. dh3 Administered Medications: Discontinued: NS 0.9% 1000 ml IV at 75 ml/hr continuous 07:42 Drug: NS 0.9% 1000 ml Route: IV; Rate: 75 ml/hr; Site: left antecubital; iw 10:00 Follow up: IV Status: Order to discontinue infusion iw 08:56 Drug: Lasix 20 mg Route: IVP; Site: left antecubital; iw 11:53 Follow up: Response: No adverse reaction iw 08:56 Drug: Rocephin 1 grams Route: IV; Rate: per protocol; Site: left antecubital; iw 09:00 Follow up: IV Status: Completed infusion iw 08:57 Drug: Decadron - Dexamethasone 6 mg Route: IVP; Site: left antecubital; iw 10:00 Follow up: Response: No adverse reaction; Marked relief of symptoms iw 09:52 Drug: Lovenox 40 mg Route: Sub-Q; Site: left lower abdomen; iw 11:52 Follow up: Response: No adverse reaction iw 09:53 Not Given (Patient Refused): Aspirin 162 mg PO once iw 09:53 Drug: Pepcid 20 mg Route: IVP; Site: left antecubital; iw 11:52 Follow up: Response: No adverse reaction iw 10:30 Drug: Zithromax 500 mg Route: IVPB; Infused Over: 1 hrs; Site: left antecubital; iw 11:42 Follow up: IV Status: Completed infusion iw Output: 11:18 Urine: 800ml (Voided); Total: 800ml. iw Outcome: 09:18 Decision to Hospitalize by Provider. long 13:37 Admitted to Med/surg accompanied by janelle, via wheelchair, room 224, with chart, Report iw called to ALICE Fallon 13:37 Condition: good 13:37 Discharge instructions given to patient, Instructed on the need for admit, Demonstrated understanding of instructions. 13:46 Patient left the ED. iw Signatures: Radha Villa, Yousuf Chang RN, MD MD cha Williams, Irene, RN RN iw Smirch, Shelby, RN RN ss Herrera, Deanna [facility] Jeannie Huerta 3
[2020-07-12] MEDS ORDERED: FAMOTIDINE 20 MG/2 ML VIAL IV ONE (09:50)
[2020-07-12] MEDS ORDERED: ENOXAPARIN 40 MG/0.4 ML SQ ONE (09:50)
[2020-07-12] MEDS ORDERED: ASPIRIN 81 MG CHEWABLE TABLET ONE (09:50)
[2020-07-12] MEDS ORDERED: AZITHROMYCIN IV 500 MG in NA CHLORIDE 0.9% 250 ML IVPB ONE (10:00)
--- NOTE | 2020-07-12 13:08 | P.HP ---
Certification for Inpatient Patient admitted to: Observation With expected LOS: <2 Midnights Practitioner: I am a practitioner with admitting privileges, knowledge of patient current condition, hospital course, and medical plan of care. Services: Services provided to patient in accordance with Admission requirements found in Title 42 Section 412.3 of the Code of Federal Regulations Patient History Date of Service: 07/12/20 Reason for admission: Shortness of breath History of Present Illness: 75-year-old gentleman with a history of diabetes and hypertension presented to emergency department with a complaint of shortness of breath of 2 days duration. Patient report significant shortness of breath with exertion and at rest. He denied cough. He denied palpitation. He reported sometimes he experiences fever and chills, no chest pain. His D-dimer and BNP were elevated in the ED. CTA thorax was performed which showed bilateral pleural effusion and increased interstitial opacities suggestive of vascular congestion versus viral pneumonia. His COVID 19 test was negative. Patient was given a dose of IV Lasix in the ED. EKG showed no ischemic changes. Acute CHF is suspected. Patient is placed under observation for further management. Allergies No Known Allergies Allergy (Unverified 07/12/20 09:54) - Past Medical/Surgical History -: Hypertension -: Diabetes -: Coronary artery disease -: CABG - Family History Family History: Reviewed- Non-Contributory - Social History Smoking Status: Never smoker Alcohol use: No CD- Drugs: No Review of Systems Other: Except as documented, all other systems reviewed and negative. Physical Examination - Physical Exam General: Alert, In no apparent distress, Oriented x3 HEENT: Normocephalic, Mucous membr. moist/pink, EOMI Neck: Supple, JVD not distended Respiratory: Clear to auscultation bilaterally, Diminished (Right lower region), Crackles/rales (Crackles-right lower lung.) Cardiovascular: No edema, Regular rate/rhythm, Normal S1 S2 Capillary refill: <2 Seconds Gastrointestinal: Normal bowel sounds, Soft and benign, Non-distended, No tenderness Musculoskeletal: No swelling, No erythema Integumentary: No rashes Neurological: Normal speech, Normal strength at 5/5 x4 extr - Studies Laboratory Data (last 24 hrs) 07/12/20 07:20: PT 14.5 H, INR 1.23 07/12/20 07:20: WBC 9.4, Hgb 13.0 L, Hct 38.0 L, Plt Count 265 07/12/20 07:20: Sodium 140, Potassium 4.5, BUN 17, Creatinine 1.02, Glucose 149 H, Magnesium 2.0, Total Bilirubin 1.8 H, AST 12 L, ALT 15, Alkaline Phosphatase 76 07/12/20 07:17: Sodium Cancelled, Potassium Cancelled, BUN Cancelled, Creatinine Cancelled, Glucose Cancelled, Magnesium Cancelled, Total Bilirubin Cancelled, AST Cancelled, ALT Cancelled, Alkaline Phosphatase Cancelled 07/12/20 07:15: PT Cancelled, INR Cancelled 07/12/20 07:15: WBC Cancelled, Hgb Cancelled, Hct Cancelled, Plt Count Cancelled Microbiology Data (last 24 hrs): 07/12/20 07:20 Nasopharnyx Influenza Type A Antigen Screen - Final 07/12/20 07:20 Nasopharnyx Influenza Type B Antigen Screen - Final Assessment and Plan - Problems (Diagnosis) (1) Dyspnea Current Visit: Yes Status: Acute (2) Pulmonary edema Current Visit: Yes Status: Acute (3) Pneumonia Current Visit: Yes Status: Acute (4) Coronary artery disease Current Visit: Yes Status: Acute (5) Diabetes mellitus type 2 in obese Current Visit: Yes Status: Acute - Plan Place under observation. Continue to trend troponin Treat with IV Lasix 40 mg b.i.d. Monitor intake and output, daily weight. Obtain echocardiogram Cardiology consult Oral Levaquin for possible atypical pneumonia. Supplemental oxygen as needed. - Advance Directives Does patient have a Living Will: No Does patient have a Durable POA for Healthcare: No
[2020-07-12 13:25] LABS: Urine Blood NEGATIVE (NEG); Urine Glucose NEGATIVE (NEG); Urine Protein NEGATIVE (NEG); Urine pH 5.5 (5.0-7.0)
[2020-07-12] MEDS ORDERED: ALBUTEROL 2.5 MG/3 ML NEB SOL NEB PRN (13:46)
[2020-07-12] MEDS: FUROSEMIDE 40 MG/4 ML VIAL IV SCH (16:57)
[2020-07-12] MEDS: INSULIN -REGULAR HUMAN 50 UNIT/0.5 ML ML SQ SCH ×2 (16:57→20:07)
--- NOTE | 2020-07-12 21:25 | CON ---
Date of Consultation: 07/12/2020 Reason For Consultation: Shortness of breath. History Of Present Illness: A 75-year-old male, known history of coronary artery disease, status pos t cardiac bypass surgery, 4-vessel bypass as per report, about 5 years ago; hypertension; diabetes; p resented to the emergency room with shortness of breath for about 2 days ago. It will get better on its own and mainly it is on exertion. Yesterday evening, went to bed and woke up around 5 o'clock in the morning with significant shortness of breath that he had to sit up to breathe better, presented to the emergency room, was found to be in congestive heart failure, given IV Lasix, and he feels bett er already. Past Medical History: As outlined above in HPI. Medications: Refer to reconciliation sheet for detailed list. Allergies: NO KNOWN DRUG ALLERGIES. Family History: No mention of coronary artery disease or cancer. Social History: Does not smoke or drink. Does not use any drugs. Review of Systems: All systems reviewed and they are negative except as mentioned in the HPI. Physical Examination: Vital Signs: Temperature is 98.3, pulse 74, breathing at 18, blood pressure is 195/85, saturating 98 % on room air. General: Pleasant, elderly male, in no apparent distress. Head and Neck: Pupils are equal, reactive to light. Intact eye movements. No JVD. No cervical tashi nopathy. Neck: Supple. Thyroid is not enlarged. Lungs: Clear to auscultation bilaterally. No rhonchi, wheezing, or crackles. No accessory muscle u se. Heart: Regular rate and rhythm. No extra sounds. Abdomen: Soft, nontender. Bowel sounds positive. No organomegaly. No masses or hernia. No rigidi ty or rebound. Extremities: No edema, clubbing, or cyanosis. Intact pulses. Skin: No rash or lesion. Neurologic: Alert, awake, and oriented x3. No acute focal deficits appreciated. Investigations,: NT-proBNP is 1845, creatinine 1.02. Sodium 1.40, and troponin 0.03. White blood c ell count is 9.4, hemoglobin is 13. CTA of the chest; no pulmonary embolism but there is bilateral e ffusion, right greater than the left, with possible pulmonary edema. Assessment/plan: Acute congestive heart failure. Echo showed normal ejection fraction and diastolic dysfunction. Agree with IV diuretics. Monitor BUN, creatinine, and do serial sets of cardiac enzym es. The patient follows up with a factory focus technician elsewhere and had a stress test recently that was neg ative as per his report. Trend troponins, and if troponin level goes up, further ischemic workup augustus l be warranted, at this point and diuresis and re-evaluate. SR/MODL Voice ID: [id number] Report ID: [id number]
[2020-07-13 06:03] LABS: Absolute Lymphocytes (CBC) 1.5 K/uL (0.7-4.9); Basophils % 0.1 % (0-1.3); Hematocrit 35.7 % (39.6-49.0); Lymphocytes % 15.5 % (15.3-44.8); MPV 9.7 fL (7.6-11.3); Magnesium 2.1 mg/dL (1.8-2.4); Phosphorus 3.7 mg/dL (2.5-4.9); RBC Red Blood Cell Count 3.82 M/uL (4.33-5.43)
[2020-07-13] MEDS: INSULIN -REGULAR HUMAN 50 UNIT/0.5 ML ML SQ SCH ×4 (07:30→20:38)
[2020-07-13] MEDS: ASPIRIN EC 81 MG TAB PO SCH (08:47)
[2020-07-13] MEDS: FUROSEMIDE 40 MG/4 ML VIAL IV SCH (08:47)
[2020-07-13] MEDS: ENOXAPARIN 40 MG/0.4 ML SQ SCH (08:49)
--- NOTE | 2020-07-13 09:36 | ECHO ---
HEIGHT: 5 ft 4 in WEIGHT: 188 lb 12.8 oz DATE OF STUDY: 07/12/[address]: dale jarvis 2-DIMENSIONAL: YES M.MODE: YES DOPPLER: YES COLOR FLOW: YES TDS: NO PORTABLE: NO DEFINITY: NO BUBBLE STUDY: NO DIAGNOSIS: CONGESTIVE HEART FAILURE CARDIAC HISTORY: CATHERIZATION: YES SURGERY: YES PROSTHETIC VALVE: NO PACEMAKER: NO MEASUREMENTS (cm) DIASTOLIC (NORMALS) SYSTOLIC (NORMALS) IVSd 1.2 (0.6-1.2) LA Diam 4.5 (1.9-4.0) LVEF 50-55% LVIDd 5.8 (3.5-5.7) LVIDs 4.4 (2.0-3.5) %FS 24% LVPWd 1.3 (0.6-1.2) Ao Diam 3.0 (2.0-3.7) 2 DIMENSIONAL ASSESSMENT: RIGHT ATRIUM: NORMAL LEFT ATRIUM: ENLARGED RIGHT VENTRICLE: NORMAL LEFT VENTRICLE: NORMAL TRICUSPID VALVE: NORMAL MITRAL VALVE: MILD MITRAL REGURGITATION AND MITRAL ANNULAR CALCIFICATION PULMONIC VALVE: NORMAL AORTIC VALVE: MILDLY CALCIFIED, NO AORTIC STENOSIS PERICARDIAL EFFUSION: NONE AORTIC ROOT: NORMAL LEFT VENTRICULAR WALL MOTION: MILD GLOBAL HYPOKINESIS. DOPPLER/COLOR FLOW: DIASTOLIC DYSFUNCTION. COMMENTS: LOW NORMAL LEFT VENTRICULAR EJECTION FRACTION 50-55%. DIASTOLIC DYSFUNCTION. MILD MITRAL REGURGITATION. TECHNOLOGIST: STEPHANIA ZEPEDA
--- NOTE | 2020-07-13 10:47 | EKG ---
Test Date: 2020-07-12 Test Time: 07:25:56 Package Delivery Room Service Runner: TINO MEASUREMENT RESULTS: Intervals: Rate: 72 MN: 184 QRSD: 118 QT: 388 QTc: 424 [place]: P: 48 MN: 184 QRS: -37 T: 114 INTERPRETIVE STATEMENTS: Sinus rhythm with fusion complexes Left axis deviation Left ventricular hypertrophy with QRS widening and repolarization abnormality Abnormal ECG Compared to ECG 06/16/2005 05:25:00 Fusion complex(es) now present Left ventricular hypertrophy now present Early repolarization now present Sinus bradycardia no longer present Electronically Signed On 07-13-20 10:45:17 CDT by El Rodriguez
--- NOTE | 2020-07-13 12:49 | P.PN ---
Subjective Date of Service: 07/13/20 Chief Complaint: Shortness of breath Subjective: Improving (Breathing slightly more comfortably today. Feels swelling has slightly improved as well) Physical Examination - Vital Signs Temperature: 97.4 F Blood Pressure: 156/71 Pulse: 66 Respirations: 20 Pulse Ox (%): 97 - Physical Exam General: Alert, In no apparent distress Neck: JVD not distended, No LAD Respiratory: Clear to auscultation bilaterally, Diminished (Slightly at bases) Cardiovascular: Regular rate/rhythm, Normal S1 S2, Edema (trace to knees bilaterally) Gastrointestinal: Soft and benign, Non-distended, No tenderness Musculoskeletal: No erythema, No tenderness Integumentary: No rashes Neurological: Normal speech, Normal affect - Studies Microbiology Data (last 24 hrs): 07/12/20 07:20 Nasopharnyx Influenza Type A Antigen Screen - Final 07/12/20 07:20 Nasopharnyx Influenza Type B Antigen Screen - Final Assessment & Plan Physician Review Additional Text: Dyspnea Pulmonary edema diastolic CHF, new onset Pneumonia Coronary artery disease Diabetes mellitus type 2 in obese Dyspnea Pulmonary edema diastolic CHF, new onset Pneumonia -likely due to acute CHF Exacerbation, diastolic dysfunction present on echocardiogram -TTE: Mild global hypokinesis, EF: 50-55%, diastolic dysfunction, mild mitral regurgitation -cardiology consulted - appreciated assistance -diuresed well, breathing more comfortably today -troponin remained negative -received one dose of azithromycin in the ED for possible atypical pneumonia, patient without sepsis/SIRS on admission -COVID negative, flu negative FLAVIA -Cr increased today -likely secondary to lasix and contrast-induced nephropathy -nephrology consulted -decrease lasix 40mg BID to 20 mg daily -Renal U/S ordered, urine studies ordered -repeat BMP in AM Coronary artery disease Diabetes mellitus type 2 in obese -stable Dispo: anticipate DC home tomorrow, pending no worsening of his kidney function Time Spent Managing Pts Care (In Minutes): 35
--- NOTE | 2020-07-13 12:50 | CON ---
Date of Consultation: 07/13/2020 Reason For Consultation: Elevated BUN and creatinine, fluid management. History Of Present Illness: This is a pleasant 75-year-old gentleman with significant past medical h istory of diabetes since 1979 complicated with neuropathy, no retinopathy, hypertension, hyperlipidem ia, coronary artery disease status post CABG back in 2014, complicated with congestive heart failure. The patient came to the hospital complaining from shortness of breath and cough. The patient's upo n arrival to the hospital creatinine was 1. The patient undergone CT angio. Creatinine today 1.4. For that reason, we have been consulted. The patient denied taking any nonsteroidal. No IV contrast . The patient on home medication being on enalapril. During the hospitalization, the patient being on Lasix. The patient had good urine output. Past Medical History: 1.Hypertension. 2.Hyperlipidemia. 3.Coronary artery disease complicated with congestive heart failure, status post CABG back in 2014 w ith diastolic dysfunction, ejection fraction on this admission 55. Family History: Positive for hypertension. Social History: Denies smoking. Denies drinking. Denies drugs abuse. Review of Systems: Head and Neck: No red eye. No ear pain. GI: No nausea. No vomiting. : No polyuria. No dysuria. No hematuria. Honey Blender: Not applicable. Respiratory: Has shortness of breath. Cardiovascular: Has leg swelling. Endocrine: No polydipsia. Skin: No rash. Neuro: Has neuropathy. Musculoskeletal: No joint pain. Home Medications: Include; 1.Aspirin. 2.Simvastatin. 3.Vitamin D. 4.Plavix. 5.Lorazepam. 6.Carvedilol 6.25. 7.Enalapril. Current Medications: In the hospital include Lasix 40 mg b.i.d., Lovenox, azithromycin. Physical Examination: General: When I saw the patient, the lying in bed. Vital Signs: Blood pressure 156/71, pulse of 66. Chest: Clear to auscultation. Heart: S1, S2. Systolic murmur. Abdomen: Soft, nontender. Extremities: Trace edema. Neurological: Alert and oriented x3. No focal. Laboratory Data: Upon admission, creatinine 1, GFR of 71. Currently sodium 142, potassium 4, bicarb 30, BUN 27, creatinine 1.4, GFR of 47, calcium 8.3, phosphorus 3.7, magnesium 2.1. WBC 9.6, H and H 12.3/35.7, platelet 270. Urinalysis negative for infection. CT chest showing bilateral pleural eff usions, right greater than the left with pulmonary edema. Assessment And Plan: 1.Acute kidney injury secondary to contrast-induced nephropathy superimposed with JUSTINE inhibitor and Lasix. I am going to go ahead and send for renal ultrasound. I will send for CK and uric acid and I am going to decrease the diuresis. We will monitor the patient closely. I agree with holding the A CE inhibitor for the time being. 2.Hypertension with the presence of acute kidney injury. Hold JUSTINE inhibitor. 3.Vitamin D deficiency. We will follow up vitamin D level. 4.Diabetes as by primary. 5.Congestive heart failure, diastolic dysfunction. Currently, the patient normal volume with the presence of acute kidney injury. Decrease Lasix. AYAN/TERRIE Voice ID: [id number] Report ID: [id number]
--- NOTE | 2020-07-13 14:29 | RAD REPORT ---
EXAM DESCRIPTION: US - Renal Ultrasound-Complete - 07/13/2020 2:18 pm CLINICAL HISTORY: FLAVIA Flank pain COMPARISON: No comparisons FINDINGS: Both kidneys are normal in size, shape and echotexture. The right kidney measures 12.0 x 5.3 x 4.4 cm. No hydronephrosis, focal mass or perinephric fluid. The left kidney measures 10.6 x 4.4 x 3.9 cm. No hydronephrosis, focal mass or perinephric fluid. The urinary bladder is incompletely distended without gross abnormality seen. IMPRESSION: Unremarkable renal sonogram.
--- NOTE | 2020-07-13 15:04 | RAD REPORT ---
EXAM DESCRIPTION: RAD - Chest Single View - 07/13/2020 2:58 pm CLINICAL HISTORY: COPD Chest pain. COMPARISON: Chest Single View dated 07/12/2020 FINDINGS: Portable technique limits examination quality. The lungs are grossly clear. The heart is mildly enlarged size. No displaced fractures.Sternotomy wir es present. IMPRESSION: No acute intrathoracic process suspected.
[2020-07-13 16:37] VITALS: BMI 32.3
[2020-07-13 22:51] LABS: Urine Appearance CLEAR; Urine Bilirubin NEGATIVE (NEG); Urine Blood NEGATIVE (NEG); Urine Color YELLOW; Urine Glucose NEGATIVE (NEG); Urine Protein TRACE (NEG); Urine Specific Gravity 1.025 (1.005-1.030); Urine pH 6.5 (5.0-7.0)
[2020-07-13 23:00] LABS: Urine Protein/Creatinine Ratio 0.2 ratio (<0.15)
[2020-07-13 23:26] LABS: Urine Microscopic Reflex ORDER UMIC
[2020-07-14 00:24] LABS: Urine Bacteria <20 /HPF (NONE SEEN); Urine Culture Reflex Order NOT NEEDED; Urine RBC <5 /HPF (NONE SEEN)
[2020-07-14 05:12] LABS: Albumin 3.2 g/dL (3.4-5.0); Magnesium 2.2 mg/dL (1.8-2.4); Phosphorus 3.5 mg/dL (2.5-4.9); Thyroid Stimulating Hormone 2.48 uIU/mL (0.360-3.740)
--- NOTE | 2020-07-14 05:29 | PN ---
Date of Progress Note: 07/13/2020 History Of Present Illness: Mr. Hart is a 75-year-old, [place]-La[place] male with history of CABG, hypertension, diabetes, depression, and dyslipidemia. Came in with acute diastolic congestive heart failure. Echocardiogram today confirmed that. He was seen by Dr. Reynolds. He had been diuresing anabella dixon. This morning, he feels almost back to normal. He had a negative chest x-ray. CTA showed very sm all bilateral pleural effusion. He has been getting IV Lasix and Lovenox in addition to his home med ication, and I believe, he may be ready to go home. Physical Examination: This morning; Vital Signs: Stable, he was afebrile. Chest: Clear. Cardiac: Reveals a regular rhythm and rate with an S4 gallops. Abdomen: Benign. Extremities: Show no edema today. Impression And Plan: Acute diastolic congestive heart failure, most likely secondary to hypertension . He takes aspirin, Plavix, enalapril, Coreg, Zocor, and Neurontin at home. I think he needs to als o be on Lasix 40 mg daily, fluid restriction, salt restriction. It may be reasonable to increase his Coreg dose or maybe add amlodipine to his regimen to get his blood pressure better controlled. His diabetes and dyslipidemia and history of coronary artery disease are stable. From my standpoint, he can go home whenever it is okay with Dr. Hansen and he will follow up with Dr. 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 LORNE/TERRIE Voice ID: [id number] Report ID: [id number]
[2020-07-14] MEDS: INSULIN -REGULAR HUMAN 50 UNIT/0.5 ML ML SQ SCH ×2 (07:30→12:23)
[2020-07-14] MEDS: ENOXAPARIN 40 MG/0.4 ML SQ SCH (07:53)
[2020-07-14] MEDS: ASPIRIN EC 81 MG TAB PO SCH (07:53)
[2020-07-14] MEDS ORDERED: FUROSEMIDE 20 MG/ 2ML VIAL IV SCH (09:00)
--- NOTE | 2020-07-14 09:10 | P.DS ---
Admission Date: 07/13/20 Discharge Date: 07/14/20 Disposition: ROUTINE DISCHARGE Discharge Condition: GOOD Reason for Admission: Shortness of breath Consultations: Cardiology - Dr. Rodriguez Nephrology - Dr. Bhatia Procedures: CXR (07/12): Patchy lung parenchymal opacification distention noted by respiratory motion. No focal consolidation confirmed. Mild bilateral infiltrates cannot be excluded CTA chest (07/12): No PE identified, small bilateral pleural effusions, right greater than left with partial atelectasis. Heart size is upper limits of normal. No pericardial effusion. CXR (07/13): Lungs are grossly clear. Heart is mildly enlarged. No acute intrathoracic process suspected. Renal ultrasound (07/13): Unremarkable renal sonogram TTE (07/13): Mild global hypokinesis, Low normal LV EF: 50-55%, diastolic dysfunction present, mild mitral regurgitation Problem list Dyspnea Pulmonary edema diastolic CHF, new onset Coronary artery disease Diabetes mellitus type 2 in obese Brief History of Present Illness: 75-year-old male, PMH: DM 2, HTN, CAD who presented to the ED with worsening shortness of breath of 2 days duration. Reported significant dyspnea on exertion as well as shortness of breath at rest. He denied chest pain, palpitations, cough. His D-dimer was 1138, BNP: 1845, EKG showed no ischemic changes, and imaging as noted above. Hospital Course: Patient was admitted for further evaluation and management of acute congestive heart failure. His troponins were trended and remained negative, he underwent a echocardiogram which revealed mild global hypokinesis, EF: 50-55%, diastolic dysfunction, mild mitral regurgitation. He was initially diuresed with 40 mg Lasix b.i.d., however developed an FLAVIA on the day after admission. Nephrology was consulted and agreed that it was likely due to contrast induced nephropathy superimposed with JUSTINE-inhibitor and Lasix. His Lasix was decreased to 20 mg IV daily. Renal ultrasound was obtained and unremarkable. His creatinine improved from 1.47-1.19 on day of discharge. Patient reported breathing much more comfortably on room air and was discharged home with a prescription for 40 mg PO Lasix per cardiology's recommendation. He was advised to follow up with his PCP, his surgical brace maker, Dr. Adan, and Dr. Bhatia in the next few weeks. His enalapril was discontinued on discharge, patient was started on Norvasc 5 mg for is hypertension. He will follow up with nephrology at which time and JUSTINE- inhibitor may be restarted Of note, patient was COVID negative, flu negative. Vital Signs/Physical Exam: Temp Pulse Resp BP Pulse Ox 97.7 F 75 18 169/78 H 96 07/14/20 08:00 07/14/20 08:00 07/14/20 08:00 07/14/20 08:00 07/14/20 08:00 General: Alert, In no apparent distress Neck: JVD not distended, No LAD Respiratory: Clear to auscultation bilaterally, Normal air movement Cardiovascular: No edema, Regular rate/rhythm, Normal S1 S2 Gastrointestinal: Soft and benign, Non-distended, No tenderness Musculoskeletal: No erythema, No tenderness Integumentary: No rashes Neurological: Normal speech, Normal affect Laboratory Data at Discharge: WBC 9.6 K/uL (4.3-10.9) 07/13/20 03:35 Hgb 12.3 g/dL (13.6-17.9) L 07/13/20 03:35 Hct 35.7 % (39.6-49.0) L 07/13/20 03:35 Plt Count 270 K/uL (152-406) 07/13/20 03:35 PT 14.5 SECONDS (9.5-12.5) H 07/12/20 07:20 INR 1.23 07/12/20 07:20 Sodium 141 mmol/L (136-145) 07/14/20 04:23 Potassium 4.0 mmol/L (3.5-5.1) 07/14/20 04:23 BUN 27 mg/dL (7-18) H 07/14/20 04:23 Creatinine 1.19 mg/dL (0.55-1.3) 07/14/20 04:23 Glucose 123 mg/dL (74-106) H 07/14/20 04:23 Uric Acid 8.0 mg/dL (3.5-7.2) H 07/14/20 04:23 Phosphorus 3.5 mg/dL (2.5-4.9) 07/14/20 04:23 Magnesium 2.2 mg/dL (1.8-2.4) 07/14/20 04:23 Total Bilirubin 1.8 mg/dL (0.2-1.0) H 07/12/20 07:20 AST 12 U/L (15-37) L 07/12/20 07:20 ALT 15 U/L (12-78) 07/12/20 07:20 Alkaline Phosphatase 76 U/L (45-117) 07/12/20 07:20 Troponin I 0.03 ng/mL (0.0-0.045) 07/12/20 21:38 Triglycerides 88 mg/dL (<150) 07/13/20 03:35 Cholesterol 151 mg/dL (<200) 07/13/20 03:35 HDL Cholesterol 36 mg/dL (40-60) L 07/13/20 03:35 Cholesterol/HDL Ratio 4.19 07/13/20 03:35 Home Medications: Aspirin [Ecotrin 81 MG] 81 mg PO DAILY 07/12/20 Cholecalciferol (Vitamin D3) [Vitamin D 5,000 IU Cap*] 1 cap PO BEDTIME 07/12/20 Citalopram [Celexa*] 10 mg PO DAILY 07/12/20 Clopidogrel Bisulfate [Plavix] 75 mg PO DAILY 07/12/20 Gabapentin 300 mg PO BID 07/12/20 Glucosamine HCl 1,500 mg PO DAILY 07/12/20 LORazepam [Ativan*] 0.5 mg PO BID PRN 07/12/20 Simvastatin 40 mg PO DAILY 07/12/20 carvediloL [Carvedilol] 6.25 mg PO BID 07/12/20 Amlodipine [Norvasc] 5 mg PO DAILY 30 Days #30 tab 07/14/20 Furosemide [Lasix] 40 mg PO DAILY 30 Days #30 tablet 07/14/20 New Medications: Furosemide [Lasix] 40 mg PO DAILY 30 Days #30 tablet Amlodipine [Norvasc] 5 mg PO DAILY 30 Days #30 tab Diet: ADA Activity: Ad rajan Followup: Marilyn Bhatia MD [ACTIVE - CAN ADMIT] - (nephorologist- follow up in 3-4 weeks, call to schedule an appointment ) Time spent managing pt's care (in minutes): 40
[2020-07-14] MEDS ORDERED: CLOPIDOGREL 75 MG TABLET PO SCH (09:30)
[2020-07-14] MEDS ORDERED: carvediloL 6.25 MG TAB PO SCH (09:30)
[2020-07-14] MEDS ORDERED: CITALOPRAM 10 MG TABLET PO SCH (09:30)
[2020-07-14 12:16] VITALS: BP 105/60; TEMP 97.6
[2020-07-14 12:32] VITALS: O2SAT 97
--- NOTE | 2020-07-14 12:36 | PN ---
Date of Progress Note: 07/14/2020 Subjective: The patient was admitted with chest pain and shortness of breath. The patient undergoes CT with contrast, had acute kidney injury secondary to contrast induced nephropathy. Physical Examination: Vital Signs: Blood pressure 168/78, pulse of 79, afebrile. The patient had good urine output of 600 . Chest: Clear to auscultation. Heart: S1, S2. Regular. Abdomen: Soft, nontender. Extremities: No edema. Laboratory Data: WBC 9.6, H and H 12.3/35.7, platelets 270. Sodium 141, potassium 4, bicarb 33, BUN 27, creatinine 1.1, GFR of 60, calcium of 8.5, uric acid of 8, phosphorus 3.2, magnesium 2.2, albumi n 3.2, corrected calcium 9.2. TSH 2.4. PC ratio 0.2. Renal ultrasound; normal size kidney 12/10.6, no hydro. Assessment And Plan: 1.Acute kidney injury secondary to contrast induced nephropathy back to baseline, normal volume. I am going to keep holding JUSTINE inhibitor or ARB for the time being and the patient cleared from the kim al standpoint for discharge planning. 2.Hypertension, not controlled. Okay to resume carvedilol. Keep holding enalapril for the time edwar ng. 3.Shortness of breath. As chest x-ray did not show any over volume. Ejection fraction within sultana l limits, but has diastolic dysfunction. I am going to resume low dose of Lasix and we will follow u p the patient as outpatient. AYAN/TERRIE Voice ID: [id number] Report ID: [id number]
[2020-07-14] MEDS ORDERED: ATORVASTATIN 20 MG TAB PO SCH (21:00)
[2020-07-14] MEDS ORDERED: GABAPENTIN 300 MG CAP PO SCH (21:00)
[2020-07-14] MEDS ORDERED: VITAMIN D 5,000 UNIT CAP PO SCH (21:00)
[2020-07-15] MEDS ORDERED: HOME MED 1 EA UNK (Simvastatin [Simvastatin] 40 MG) PO SCH (09:00)
[2020-07-15] MEDS ORDERED: FUROSEMIDE 20 MG TABLET PO SCH (09:00)
[2020-07-18 12:42] LABS: Vitamin D 1,25-Dihydroxy Total 39 pg/mL (18-72); Vitamin D,1,25-OH2, D2 <8 pg/mL
== END 2020-07-14 13:03 | disposition home or self-care (01) | DRG 291 ==
LOC: ER 06:58 → ERHOLD 12:44 → 2ND 13:39 → OBSVTOIN 07-13 13:53
PROVIDERS: ADMIT Internal Medicine; ATTEND Hospitalist
DX: I11.0 Hypertensive heart disease with heart failure (principal); J18.9 Pneumonia, unspecified organism; I50.31 Acute diastolic (congestive) heart failure; R65.10 Systemic inflammatory response syndrome (SIRS) of non-infectious origin without acute organ dysfunction; N17.9 Acute kidney failure, unspecified; E11.9 Type 2 diabetes mellitus without complications; E55.9 Vitamin D deficiency, unspecified; I25.10 Atherosclerotic heart disease of native coronary artery without angina pectoris; N14.1 Nephropathy induced by other drugs, medicaments and biological substances; R06.00 Dyspnea, unspecified; T50.8X5A Adverse effect of diagnostic agents, initial encounter; T50.1X5A Adverse effect of loop [high-ceiling] diuretics, initial encounter; E66.9 Obesity, unspecified; Z68.31 Body mass index [BMI] 31.0-31.9, adult; Z79.82 Long term (current) use of aspirin; Z95.1 Presence of aortocoronary bypass graft; Z79.02 Long term (current) use of antithrombotics/antiplatelets; Z79.899 Other long term (current) drug therapy; Z20.828 Contact with and (suspected) exposure to other viral communicable diseases
CPT/HCPCS: 36415; 71045; 71275; 76770; 80048; 80061; 80069; 80076; 81003; 81015; 82570; 82652; 82947; 83735; 83880; 84100; 84156; 84300; 84443; 84484; 84550; 85025; 85379; 85610; 87040; 87804; 93005; 93306; 94760; 96361; 96365; 96372; 96375; 99285; G0378; J0456; J0696; J1650; J1940; J7030; J7050; Q9967; U0003